=== PATIENT | male | born 1950 | race Caucasian/White ===

== ENCOUNTER 2019-09-19 05:53 | Inpatient (IN) ==
[2019-09-12 13:25] LABS: Basophils # 0.1 10*3/uL (0.0-0.2); Basophils % 1.3 % (0.0-0.8); Eosinophils # 0.3 10*3/uL (0.0-0.87); Eosinophils % 5.3 % (0.00-10.9); Hematocrit 45.1 VOL% (42.0-52.0); Hemoglobin 14.8 GM/DL (14.0-18.0); Immature Granulocytes % 0.2 %; Immature Granulocytes Absolute 0.01 #; Lymphocytes % 37.1 % (21.2-54.2); Mean Corpuscular HGB Conc 32.8 GM/DL (32-36); Mean Corpuscular Volume 95.3 FL (87-102); Mean Platelet Volume 9.3 FL (9.6-12.0); Monocytes % 13.2 % (1.7-12.7); Neutrophils % 42.9 % (38.7-73.9); Platelet Count 237 T/CUMM (130-400); Red Blood Count 4.73 MC/CUMM (3.8-5.5); Red Cell Distribution Width 14.6 % (9.3-17.3); White Blood Count 5.3 T/CUMM (4-12)
[2019-09-12 13:59] LABS: Calcium 8.9 MG/DL (8.5-10.1); Osmolality,Calculated 281.1 MOS/KG (273-304)
[~2019-09-19 05:53] MED LIST: ERTAPENEM 1,000 MG VIAL ONE
[2019-09-19] MEDS ORDERED: ALVIMOPAN 12 MG CAPSULE PO ONE (06:00)
[2019-09-19] MEDS ORDERED: ERTAPENEM 1,000 MG in SODIUM CHLORIDE 0.9% 100 ML IV ONE (06:00)
[2019-09-19] MEDS: LACTATED RINGERS 1,000 ML IV SCH ×4 (06:24→21:32)
[2019-09-19] MEDS ORDERED: DEXAMETHASONE 4 MG/1 ML VIAL ONE ×2 (06:43→10:08)
[2019-09-19] MEDS ORDERED: LIDOCAINE 2% 5 ML VIAL ONE ×2 (06:43→10:08)
[2019-09-19] MEDS ORDERED: ROPIVACAINE 0.5% 30 ML VIAL ONE (06:43)
[2019-09-19] MEDS ORDERED: INDOCYANINE GREEN 25 MG VIAL IV ONE (07:59)
[2019-09-19] MEDS ORDERED: TISSUE ADHESIVE 1 EACH APPLICATOR TOP ONE (07:59)
[2019-09-19] MEDS ORDERED: propofoL 200 MG/20 ML VIAL IV ONE (10:07)
[2019-09-19] MEDS ORDERED: ROCURONIUM 100 MG/10 ML VIAL IV ONE (10:08)
[2019-09-19] MEDS ORDERED: MIDAZOLAM 2 MG/2 ML VIAL ONE (10:08)
[2019-09-19] MEDS ORDERED: SEVOFLURANE 1 UNIT/15 MINUTE INH ONE (10:08)
[2019-09-19] MEDS ORDERED: ONDANSETRON 4 MG/2 ML VIAL ONE (10:08)
[2019-09-19] MEDS ORDERED: LACTATED RINGERS 1,000 ML IV ONE (10:08)
[2019-09-19] MEDS ORDERED: fentaNYL 250 MCG/5 ML VIAL ONE (10:08)
[2019-09-19] MEDS ORDERED: fentaNYL 100 MCG/2 ML VIAL ONE (10:09)
[2019-09-19] MEDS ORDERED: ONDANSETRON 4 MG/2 ML VIAL IV PRN (10:26)
[2019-09-19] MEDS: HYDROmorphone 2 MG/1 ML VIAL IV PRN ×4 (10:30→10:53)
[2019-09-19] MEDS ORDERED: HYDROmorphone 2 MG/1 ML VIAL IV PRN (11:24)
[2019-09-19] MEDS ORDERED: MELATONIN 3 MG TABLET PO PRN (11:24)
[2019-09-19 12:06] LABS: Basophils % 0.2 % (0.0-0.8); Eosinophils % 0.2 % (0.00-10.9); Hemoglobin 14.8 GM/DL (14.0-18.0); Immature Granulocytes % 0.3 %; Immature Granulocytes Absolute 0.03 #; Lymphocytes # 0.9 10*3/uL (1.4-4.0); Lymphocytes % 9.2 % (21.2-54.2); Mean Corpuscular HGB Conc 33.6 GM/DL (32-36); Mean Corpuscular Volume 94.4 FL (87-102); Mean Platelet Volume 9.4 FL (9.6-12.0); Monocytes % 3.6 % (1.7-12.7); Neutrophils % 86.5 % (38.7-73.9); Platelet Count 209 T/CUMM (130-400); Red Blood Count 4.66 MC/CUMM (3.8-5.5); Red Cell Distribution Width 14.6 % (9.3-17.3); White Blood Count 9.8 T/CUMM (4-12)
[2019-09-19 12:20] LABS: Calcium 8.3 MG/DL (8.5-10.1); Osmolality,Calculated 280.4 MOS/KG (273-304)
[2019-09-19] MEDS: KETOROLAC 30 MG/1 ML VIAL IV SCH ×3 (12:54→23:43)
[2019-09-19] MEDS ORDERED: busPIRone 15 MG TABLET PO SCH (21:00)
[2019-09-19] MEDS ORDERED: SIMVASTATIN 20 MG TABLET PO SCH (21:00)
[2019-09-19] MEDS ORDERED: clonazePAM 0.5 MG TABLET PO SCH (21:00)
[2019-09-19] MEDS ORDERED: ENOXAPARIN 40 MG/0.4 ML SYRINGE SUBCUT SCH (21:00)
[2019-09-19] MEDS: ALVIMOPAN 12 MG CAPSULE PO SCH (21:51)
[2019-09-20 05:24] LABS: Basophils % 0.1 % (0.0-0.8); Hemoglobin 13.1 GM/DL (14.0-18.0); Immature Granulocytes % 0.4 %; Immature Granulocytes Absolute 0.07 #; Lymphocytes # 1.1 10*3/uL (1.4-4.0); Lymphocytes % 6.9 % (21.2-54.2); Mean Corpuscular HGB Conc 33.6 GM/DL (32-36); Mean Corpuscular Volume 94.2 FL (87-102); Neutrophils % 84.6 % (38.7-73.9); Platelet Count 196 T/CUMM (130-400); Red Blood Count 4.14 MC/CUMM (3.8-5.5); Red Cell Distribution Width 14.5 % (9.3-17.3); White Blood Count 15.6 T/CUMM (4-12)
[2019-09-20 05:53] LABS: Calcium 8.3 MG/DL (8.5-10.1); Osmolality,Calculated 281.5 MOS/KG (273-304)
[2019-09-20] MEDS: KETOROLAC 30 MG/1 ML VIAL IV SCH ×2 (06:12→11:13)
[2019-09-20] MEDS: LACTATED RINGERS 1,000 ML IV SCH (08:23)
[2019-09-20] MEDS: ALVIMOPAN 12 MG CAPSULE PO SCH (08:32)
[2019-09-20] MEDS ORDERED: PANTOPRAZOLE 40 MG TABLET PO SCH (09:00)
[2019-09-20] MEDS ORDERED: busPIRone 10 MG TABLET PO SCH (09:00)
[2019-09-20] MEDS ORDERED: ASPIRIN EC 81 MG TABLET PO SCH (09:00)
[2019-09-20] MEDS ORDERED: MULTIVITAMIN (CENTRUM) TABLET PO SCH (09:00)
[2019-09-20] MEDS ORDERED: TIMOLOL 0.25% OPH SOLN 5 ML BOTTLE BOTH EYES SCH (09:00)
[2019-09-20] MEDS ORDERED: COENZYME Q10 100 MG CAPSULE PO SCH (09:00)
[2019-09-20 13:27] VITALS: BP 151/57
== END 2019-09-20 14:21 | disposition home or self-care (01) | DRG 331 ==
LOC: N.OR 05:53 → N.SDSINP 05:53 → N.3E 05:54 → N.SDSINP 05:54 → N.3E 11:06 → N.OR 09-20 14:21 → N.3E 09-23 05:47
PROVIDERS: ADMIT Surgery; ATTEND Surgery